=== PATIENT | female | born 2005 | race Caucasian/White ===

== ENCOUNTER 2025-01-12 08:04 | Outpatient (REF) | payer OTHER, SELFPAY ==
--- OUTSIDE RECORDS SUMMARY | 2025-01-12 08:09 | XMS_ITS | Encounter Summary ---
Author Organization [facility] Address [address] [place] [address] Care Team Providers Care Veterinary Laboratory Diagnostician Name Role Phone [facility] Primary Care Provider Reason for Referral * Generic Referral (Routine) - Closed Specialty Diagnoses / Procedures Referred By Contact Referred To Contact Pediatric Gastroenterology Diagnoses [place] Gastroesophageal reflux disease, esophagitis presence not specified Lea Marmolejo MD [address] [place] [id number] Phone: tel:[phone] fax:[phone] [facility] [address] [address] Phone: tel: fax: Referral ID Status Reason Start Date Expiration Date V isits Requested Visits Authorized [id number] Closed Specialty Services Required 10/02/2018 10/02/2019 1 1 Encounter Details Date Type Department Care Team (Late st Contact Info) Description 10/02/2018 Community Orders [address] [address] Lea Marmolejo MD [address] [place] [address] Burping (Primary Dx); Gastroesophageal reflux disease, esophagitis presence not specified Social History Tobacco Use Types Packs/Day Years Used Date Smoking Tobacco: Never Smokeless Tobacco: Never Alcohol Use Standard Drinks/Week Comments No 0 (1 standard drink = 0.6 oz pur e alcohol) Comments No Sex and Gender Information Value Date Recorded Sex Assigned at Not on file Legal Sex Female 12:10 PM EST Gender Identity Not on file Sexual Orientation Not on file Occupation Industry Job Start Date Job End Date student Not on file Not on file Not on file documented as of this encounter Plan of Treatment Scheduled Referrals Name Type Priority Associated Diagnoses Order Schedule Ambulatory referral to Pediatric Gastroenterology Outpatient Referral Routine [place] Gastroesophageal reflux disease, esophagitis presence not specified Expected: 10/02/2018 (Approximate), Expires: 10/03/2019 documented as of this encounter Visit Diagnoses Diagnosis Burping- Primary Flatulence, eructation, and gas pain Gastroesophageal reflux disease, esophagitis presence not specified documented in this encounter Care Teams Veterinary Laboratory Diagnostician Relationship Specialty Start Date End Date [facility] [address] [place] [id number] PCP - General Pediatrics 02/25/14 documented as of this encounter
--- OUTSIDE RECORDS SUMMARY | 2025-01-12 08:09 | XMS_ITS | Clinical Summary ---
Author Organization [facility] Address [address] [place] [address] Care Team Providers Care Nursing Home Assistant Administrator Name Role Phone Provider Primary Care Provider Unavailabl e Allergies Active Allergy Reactions Criticality Noted Date Comments Penicillin Hives 01/09/2023 Sulfa (Sulfonamide Antibiotics) Hives 07/2022 Medications albuterol (ACCUNEB) 0.63 mg/3 mL nebulizer solution Inhale into the lungs Active dextroamphetamine- amphetamine (ADDERALL) 10 mg tablet Take 10 mg by mouth 2 (two) times daily Active varenicline (TYRVAYA) 0.03 mg/spray sprmIndications:Ke ratoconjunctivitis sicca of both eyes,Other specified inflammations of eyelid Place 1 spray into both nostrils 2 (two) times daily Pt's number: [phone] 8.4 mL 11 Active Social History Tobacco Use Types Packs/Day Years Used Date Smoking Tobacco: Never Assessed Comments Unknown Sex and Gender Information Value Date Recorded Sex Assigned at Female 02/04/2023 8:35 AM EDT Legal Sex Female 12:08 PM EST Gender Identity Female 02/04/2023 8:35 AM EDT Sexual Orientation Not on file Plan of Treatment Health Maintenance Due Date Last Done Comments Chlamydia Screen 2003 HIV Screen 2003 Hepatitis C Screen 2003 Lipid Panel 2003 Pap Smear 2003 Annual Physical/Well Child Check 02/24/2006 Depression Screening 2014 Varicella Vaccines (1 of 2 - 13+ 2-dose series) 2016 HPV Vaccines (1 - 3-dose series) 2018 Meningococcal B Vaccine (1 o f 2 - Standard) 2019 Adult Tetanus (Td And Tdap) 2021 COVID-19 Vaccine ( - 2023-2 5 season) 2024 Influenza Vaccine (#1) 2025 03/27/2017 Hepatitis A Vaccines Aged Out No long er eligible based on patient's age to complete this topic Hib Vaccines Aged Out No longer eligi ble based on patient's age to complete this topic Meningococcal ACWY Vaccine Aged Out N o longer eligible based on patient's age to complete this topic Pneumococcal Vaccine Aged Out No long er eligible based on patient's age to complete this topic Care Teams Nursing Home Assistant Administrator Relationship Specialty Start Date End Date Provider PCP - General 01/09/23
--- OUTSIDE RECORDS SUMMARY | 2025-01-12 08:09 | XMS_ITS | Clinical Summary ---
Author Organization [facility] Address [address] [facility] [address] [place] [phone] Phone Care Team Providers Care Associate Programmer Analyst Name Role Phone Yashira Baig DO Primary Care Provider + Encounters Date Type Department Care Team Description 01/11/2025 11:20 AM EDT - 01/11/2025 11:59 PM EDT Hospital Encounter [facility] - [address] [place] [address] Yashira Baig, DO Arrived Discharge Disposition: Home or Self Care 12/29/2024 Transcribe Orders Virtual Department [address] [place] [address] Yashira Baig, DO Menorrhagia with regular cycle (Primary Dx) from Last 3 Months Social History Tobacco Use Types Packs/Day Years Used Date Smoking Tobacco: Never Assessed Education Answer Date Recorded Are you interested in more education? Not on jonathan e 12/30/2024 Are you concerned about learning? Not on file 12/30/2024 No 12/30/2024 No 12/30/2024 Digital Access Answer Date Recorded No 12/30/2024 No 12/30/2024 Reliable internet access at home? Not on file 12/30/2024 Device with a working camera? Not on file Comments Unknown Sex and Gender Information Value Date Recorded Sex Assigned at Not on file Legal Sex Female 2:48 PM EDT Gender Identity Not on file Sexual Orientation Not on file Plan of Treatment Not on file Medical Devices Not on file Procedures Procedure Name Priority Date/Time Associated Diagnosis Comments US PELVIS TRANSABDOMINAL PLUS TRANSVAGINAL Routine 01/11/2025 12:06 PM EDT Menorrhagia with regular cycle from Last 3 Months Results * US PELVIS TRANSABDOMINAL PLUS TRANSVAGINAL (01/11/2025 12:06 PM EDT) Anatomical Region Laterality Modality Pelvis, Uterus/Adnexa Ultrasound 01/11/2025 1:15 PM EDT Impressions 01/11/2025 1:20 PM EDT 1. Homogeneous endometrium and myometrium. 2. No suspicious free fluid in the pelvis. 3. Ovaries as described with numerous peripherally oriented follicles. This appearance can be within normal limits, but can be seen in the setting of polycystic ovarian syndrome in the correct clinical scenario. Narrative 01/11/2025 1:20 PM EDT US PELVIS TRANSABDOMINAL AND TRANSVAGINAL Referring clinician's provided indication for this examination in Epic: Outside Radiology Order TECHNIQUE: Pelvic Ultrasound Transabdominal performed for global imaging of the pelvis. Pelvic Ultrasound Transvaginal performed for detailed imaging of the endometrium and/or adnexa. COMPARISON: None available FINDINGS: LMP: 01/01/2025 Uterus: Size: 6.9 x 3.7 x 4.6 cm. Orientation: anteverted Myometrium: Homogeneous Endometrium: Homogeneous Thickness: 6 mm. Right adnexa: Ovary: The right ovary measures 3.2 x 2.6 x 3.5 cm (right ovarian volume 16.5 mL). Numerous peripherally oriented follicles. Left adnexa: Ovary: The left ovary measures 3.8 x 1.9 x 3.1 cm (left ovarian volume of 11.8 mL). Numerous peripherally oriented follicles. Normal. Free fluid: No significant free fluid. Procedure Note Reji Ireland MD - 01/11/2025 US PELVIS TRANSABDOMINAL AND TRANSVAGINAL Referring clinician's provided indication for this examination in [facility]:Outside Radiology Order TECHNIQUE: Pelvic Ultrasound Transabdominal performed for global imagingof the pelvis. Pelvic Ultrasound Transvaginal performed for detailedimaging of the endometrium and/or adnexa. COMPARISON: None available FINDINGS: LMP: 01/01/2025 Uterus: Size: 6.9 x 3.7 x 4.6 cm. Orientation: anteverted Myometrium: Homogeneous Endometrium: Homogeneous Thickness: 6 mm. Right adnexa: Ovary: The right ovary measures 3.2 x 2.6 x 3.5 cm (right ovarian volume 16.5mL). Numerous peripherally oriented follicles. Left adnexa: Ovary: The left ovary measures 3.8 x 1.9 x 3.1 cm (left ovarian volume of 11.8mL). Numerous peripherally oriented follicles. Normal. Free fluid: No significant free fluid. IMPRESSION: 1. Homogeneous endometrium and myometrium. 2. No suspicious free fluid in the pelvis. 3. Ovaries as described with numerous peripherally oriented follicles.This appearance can be within normal limits, but can be seen in thesetting of polycystic ovarian syndrome in the correct clinical scenario. us Yashira Baig DO IMG US PELVIS Final Re sult from Last 3 Months Care Teams Associate Programmer Analyst Relationship Specialty Start Date End Date Yashira Baig DO [address] [place] [id number] [email or web address] PCP - General Family Medicine 12/30/24 Additional Source Comments The information contained in this document represents components of the legal health record. It is not the complete legal health record.[facility]
== END 2025-01-12 08:05 | disposition home or self-care (01) ==
LOC: HO.UMASIMG 08:04
PROVIDERS: Visit Provider Family Medicine
DX: Z13.89 Encounter for screening for other disorder (principal)